=== PATIENT | male | born 1960 | race Caucasian/White ===

== ENCOUNTER 2018-07-07 10:00 | Emergency (ER) | payer BC ==
--- NOTE | 2018-07-07 10:11 | EDM.PDOC ---
ED HPI GENERAL MEDICAL PROBLEM - General Chief Complaint: Neck Problem Stated Complaint: NECK PAIN Time Seen by Provider: 07/07/18 10:10 Source of Information: Reports: Patient History Limitations: Reports: No Limitations - History of Present Illness INITIAL COMMENTS - FREE TEXT/NARRATIVE: HISTORY AND PHYSICAL: History of present illness: Patient is a 58-year-old male who presents to the emergency room today with complaints of neck pain that radiates intermittently to both arms. He states approximately 1 week ago off of a ladder onto the ground, approximately 3 feet. He states he did not loose consciousness at this time. He fell a second time 4 days ago from standing height - he tripped and fell against a cabinet, hitting his face and "I think I blacked out". Since that time he has had increased neck pain, which radiates intermittently into the right or left shoulder (it is either or, not both at the same time). This resolves with in seconds to a minute , usually after stopping the offending activity (hold the phone, or reaching up , etc...) He states he is here today as he does have to return to work tomorrow from the long weekend, and would like his pain better managed and "make sure everything is okay". Denies any fever, chills, syncope or near syncope, change in vision. He denies any chest pain, cough or shortness of breath. He denies any neurological deficits or motor function weakness. Denies any GI or symptoms. Review of systems: As per history of present illness and below otherwise all systems reviewed and negative. Past medical history: As per history of present illness and as reviewed below otherwise noncontributory. Surgical history: As per history of present illness and as reviewed below otherwise noncontributory. Social history: No reported history of drug or alcohol abuse. Family history: As per history of present illness and as reviewed below otherwise noncontributory. Physical exam: General: Well-developed and well-nourished 58-year-old male. Alert and oriented. Nontoxic appearing and in no acute distress. HEENT: Atraumatic, nontender with palpation, normocephalic, pupils equal and reactive bilaterally, negative for conjunctival pallor or scleral icterus, mucous membranes moist, throat clear, neck supple, nontender, trachea midline. No drooling or trismus noted. No meningeal signs Lungs: Clear to auscultation, breath sounds equal bilaterally, chest nontender. Heart: S1S2, regular rate and rhythm without overt murmur Abdomen: Soft, nondistended, nontender. Negative for masses or hepatosplenomegaly. Negative for costovertebral tenderness. Pelvis: Stable nontender. Genitourinary: Deferred. Rectal: Deferred. C-spine/Back: No pinpoint vertebral tenderness upon palpation. No crepitus, step -offs or obvious deformities. Patient is fully ambulatory without difficulty or deficits. He is able to walk on his heels and toes without difficulty. He denies any urinary or fecal incontinence. Skin: Small circular healed bruise noted to the right cheekbone approximately 9 mm. Intact, warm, dry. No lesions or rashes noted. Extremities: Atraumatic, moves all extremities per self without difficulty or deficits, has full range of motion to all extremities. He is negative for cords or calf pain. Does note some intermittent tingling to bilateral extremities, does not occur both at the same time approximately 30-60 seconds Neurovascular unremarkable. Neuro: Awake, alert, oriented. Cranial nerves II through XII unremarkable. Cerebellum unremarkable. Motor and sensory unremarkable throughout. Exam nonfocal. Notes: CT of the head and neck show no acute fractures or subluxation or bleeding. I did discuss with the patient if he continues to have pain and discomfort he may need to have an MRI through his primary care provider. At this time I am going to treat as a musculoskeletal strain as he does have pain to the trapezius muscle when palpating. Flexeril and Voltaren were prescribed, education given. Patient voices understanding and is agreeable to plan of care. Denies any further questions or concerns at this time. Diagnostics: Head and C-spine CT Therapeutics: Toradol Prescription: Flexeril (#15) and Voltaren (#20) PRN Impression: Neck Pain Neck Muscular Strain Plan: 1. Rest, ice and elevate the painful areas as able. 2. Tylenol as needed for pain management. Use the Voltaren and Flexeril as directed. Do not drive or operate machinery while taking the Flexeril as this will cause drowsiness. Please take the Voltaren with food, and do not take any additional NSAID such as ibuprofen or Aleve with this medication. 3. Please follow-up with your primary caregiver in the next 1-2 days. Return to the ED as needed and as discussed. Definitive disposition and diagnosis as appropriate pending reevaluation and review of above. Duration: Day(s): Location: Reports: Neck Neck Pain Score (Numeric/FACES): 7 - Related Data Allergies Allergy/AdvReac Type Severity Reaction Status Date / Time Penicillins Allergy Cannot Verified 09/10/14 17:35 Remember Home Meds: Home Meds Fexofenadine/Pseudoephedrine [Luba-D 12 Hour Tablet] 1 tab PO DAILY 09/10/14 [History] Montelukast [Singulair] 1 tab PO DAILY 09/10/14 [History] Simvastatin [Zocor] 1 tab PO DAILY 09/10/14 [History] ED ROS GENERAL - Review of Systems Review Of Systems: ROS reveals no pertinent complaints other than HPI. ED EXAM, UPPER BACK/NECK PAIN - Physical Exam Exam: See Below (See dictation) Course - Vital Signs Last Recorded V/S: Last Vital Signs Temp 98.1 F 07/07/18 10:12 Pulse 65 07/07/18 10:12 Resp 16 07/07/18 10:12 BP 181/93 H 07/07/18 10:12 Pulse Ox 97 07/07/18 10:12 - Orders/Labs/Meds Orders: Active Orders 24 hr Category Date Time Status Cervical Spine wo Cont [CT] Stat Exams 07/07/18 10:18 Ordered Head wo Cont [CT] Stat Exams 07/07/18 10:26 Ordered Meds: Medications Discontinued Medications Generic Name Dose Route Start Last Admin Trade Name Eris PRN Reason Stop Dose Admin Ketorolac Tromethamine 60 mg 07/07/18 10:26 Toradol IM 07/07/18 10:27 ONETIME ONE Departure - Departure Time of Disposition: 11:14 Disposition: Home, Self-Care 01 Clinical Impression: Neck pain Neck muscle strain Qualifiers: Encounter type: initial encounter Qualified Code(s): S16.1XXA - Strain of muscle, fascia and tendon at neck level, initial encounter - Discharge Information Instructions: Muscle Strain Referrals: PCP,None [Primary Care Provider] - Forms: ED Department Discharge Additional Instructions: The following information is given to patients seen in the emergency department who are being discharged to home. This information is to outline your options for follow-up care. We provide all patients seen in our emergency department with a follow-up referral. The need for follow-up, as well as the timing and circumstances, are variable depending upon the specifics of your emergency department visit. If you don't have a primary care physician on staff, we will provide you with a referral. We always advise you to contact your personal physician following an emergency department visit to inform them of the circumstance of the visit and for follow-up with them and/or the need for any referrals to a consulting specialist. The emergency department will also refer you to a specialist when appropriate. This referral assures that you have the opportunity for follow-up care with a specialist. All of these measure are taken in an effort to provide you with optimal care, which includes your follow-up. Under all circumstances we always encourage you to contact your private physician who remains a resource for coordinating your care. When calling for follow-up care, please make the office aware that this follow-up is from your recent emergency room visit. If for any reason you are refused follow-up, please contact the [facility] Emergency Department at and asked to speak to the emergency department charge nurse. [facility] [address] [place] [address] 1. Rest, ice and elevate the painful areas as able. 2. Tylenol as needed for pain management. Use the Voltaren and Flexeril as directed. Do not drive or operate machinery while taking the Flexeril as this will cause drowsiness. Please take the Voltaren with food, and do not take any additional NSAID such as ibuprofen or Aleve with this medication. 3. Please follow-up with your primary caregiver in the next 1-2 days. Return to the ED as needed and as discussed. - My Orders Last 24 Hours: My Active Orders 07/07/18 10:18 Cervical Spine wo Cont [CT] Stat 07/07/18 10:26 Head wo Cont [CT] Stat - Assessment/Plan Last 24 Hours: My Active Orders 07/07/18 10:18 Cervical Spine wo Cont [CT] Stat 07/07/18 10:26 Head wo Cont [CT] Stat
[2018-07-07 10:17] VITALS: BP 181/93
[2018-07-07] MEDS ORDERED: Ketorolac 60 MG/2 ML SDV IM ONE (10:26)
[2018-07-07] MEDS ORDERED: Cyclobenzaprine 10 MG Tab PO ONE (11:22)
--- NOTE | 2018-07-08 09:08 | CT ---
EXAM DATE: 07/07/18 PATIENT'S AGE: 58 Patient: TIMMY NAZARIO Facility: [place], [place] Site . Site : 1960 Study: CT Head WO CONT [id number]/3/2018 10:42:36 AM Ordering Physician: Doctor Khan Final Report: Indication: Pain Technique: Noncontrast head CT scan Comparison: No comparison studies are available. Findings: Axial noncontrast images through the brain parenchyma demonstrates no acute intracranial hemorrhage or mass. No midline shift. No abnormal extra-axial air fluid collections. Polypoid soft tissue density left maxillary sinus may represent a mucous retention cyst or polyp. Mucosal thickening in the maxillary sinuses. Partial opacification ethmoid air cells. Visualized paranasal sinuses, mastoid air cells skull and scalp otherwise appears unremarkable. Left vertex scalp soft tissue swelling. Impression: 1. No acute intracranial hemorrhage or mass. 2. Maxillary and ethmoid sinus disease. Please note that all CT scans at this facility use dose modulation, iterative reconstruction, and/or weight-based dosing when appropriate to reduce radiation dose to as low as reasonably achievable. Dictated by Ele Cuenca MD @ Jul 07 2018 11:04AM (Electronic Signature) Report Signed by Proxy. BUBBA
--- NOTE | 2018-07-08 09:09 | CT ---
EXAM DATE: 07/07/18 PATIENT'S AGE: 58 Patient: TIMMY NAZARIO Facility: [place], [place] Site . Site : 1960 Study: CT Spine Cervical WO CONT [id number]/3/2018 10:43:25 AM Ordering Physician: Doctor Khan Final Report: Indication: Pain patient fell and hit face and neck Saturday Technique: Cervical spine CT scan. Coronal and sagittal reformatted images obtained. Comparison: No comparison studies are available. Findings: Reversal of the normal cervical lordosis. Diffuse mild to moderate degenerative change of the cervical spine with anterior bridging osteophytes. Lateral masses of C1 align normally with the C2 vertebral body. No acute fractures seen. Prevertebral soft tissues are within normal limits. Small amount fluid in the mastoid air cells. Impression: No acute cervical spine fracture or subluxation. Please note that all CT scans at this facility use dose modulation, iterative reconstruction, and/or weight-based dosing when appropriate to reduce radiation dose to as low as reasonably achievable. Dictated by Ele Cuenca MD @ Jul 07 2018 11:08AM (Electronic Signature) Report Signed by Proxy. BUBBA
== END 2018-07-07 11:45 | disposition home or self-care (01) ==
LOC: MW.ED 10:00
DX: S16.1XXA Strain of muscle, fascia and tendon at neck level, initial encounter (principal); Z88.0 Allergy status to penicillin; Z79.899 Other long term (current) drug therapy
CPT/HCPCS: 70450; 72125; 96372; 99283; A9270; J1885

== ENCOUNTER 2018-11-24 13:36 | Observation (INO) | payer BC ==
[2018-11-24] MEDS ORDERED: Nitroglycerin 0.4 MG Tab.SL SL PRN (14:03)
[2018-11-24] MEDS ORDERED: Aspirin 81 MG Tab.Chew PO ONE (14:03)
--- NOTE | 2018-11-24 14:15 | EDM.PDOC ---
ED HPI GENERAL MEDICAL PROBLEM - General Chief Complaint: Chest Pain Stated Complaint: CHEST PAIN AND TIGHTNESS Time Seen by Provider: 11/24/18 14:05 Source of Information: Reports: Patient History Limitations: Reports: No Limitations - History of Present Illness INITIAL COMMENTS - FREE TEXT/NARRATIVE: HISTORY AND PHYSICAL: History of present illness: Patient is a 58-year-old male who presents to the emergency room with complaints of chest pain, near syncopal and diaphoresis. Over the past several weeks he has been having intermittent chest pain. He saw his primary care provider who has been evaluating him. This morning he saw our outcomes manager and had a physical stress test done. He states during that time he felt near syncopal, midsternal chest pain and generalized malaise. Per patient, he was told to call his primary care provider to get a prescription for nitroglycerin sublingual. He currently has midsternal chest pain, upon arrival it was a 5 currently rates it at a 2 out of 10. Review of systems: As per history of present illness and below otherwise all systems reviewed and negative. Past medical history: As per history of present illness and as reviewed below otherwise noncontributory. Surgical history: As per history of present illness and as reviewed below otherwise noncontributory. Social history: See social history for further information Family history: As per history of present illness and as reviewed below otherwise noncontributory. Physical exam: General: Well-developed and well-nourished 58-year-old male. Alert and oriented. Nontoxic appearing and in no acute distress. HEENT: Atraumatic, normocephalic, pupils equal and reactive bilaterally, negative for conjunctival pallor or scleral icterus, mucous membranes moist, TMs normal bilaterally, throat clear, neck supple, nontender, trachea midline. No drooling or trismus noted. No meningeal signs. No hot potato voice noted. Lungs: Clear to auscultation, breath sounds equal bilaterally, chest nontender. Heart: S1S2, regular rate and rhythm without overt murmur Abdomen: Soft, nondistended, nontender. Negative for masses or hepatosplenomegaly. Negative for costovertebral tenderness. Pelvis: Stable nontender. Genitourinary: Deferred. Rectal: Deferred. Skin: Intact, warm, dry. No lesions or rashes noted. Extremities: Atraumatic, negative for cords or calf pain. Neurovascular unremarkable. Neuro: Awake, alert, oriented. Cranial nerves II through XII unremarkable. Cerebellum unremarkable. Motor and sensory unremarkable throughout. Exam nonfocal. Notes: Patient had relief of chest pain with one tablet of nitroglycerin. Continues to complain of sensation of near syncope and some neck discomfort. Lab work is unremarkable. Chest x-ray shows no acute findings. Offered patient admission he is agreeable. Dr. Garcia was consulted on this patient and agreeable to keep this patient for observation with telemetry. Diagnostics: CBC, CMP, troponin, EKG, chest x-ray Therapeutics: IV fluid, nitroglycerin, aspirin Impression: Chest pain rule out Near syncope Plan: Observation admission to [facility] with telemetry Definitive disposition and diagnosis as appropriate pending reevaluation and review of above. left chest Pain Score (Numeric/FACES): 4 - Related Data Allergies Allergy/AdvReac Type Severity Reaction Status Date / Time Penicillins Allergy Cannot Verified 11/24/18 13:43 Remember Home Meds: Home Meds Fexofenadine/Pseudoephedrine [Luba-D 12 Hour Tablet] 1 tab PO DAILY 09/10/14 [History] Montelukast [Singulair] 1 tab PO DAILY 09/10/14 [History] Simvastatin [Zocor] 1 tab PO DAILY 09/10/14 [History] Albuterol [Ventolin HFA] 11/24/18 [History] Esomeprazole [NexIUM] 40 mg PO DAILY 11/24/18 [History] Past Medical History HEENT History: Reports: Allergic Rhinitis Cardiovascular History: Reports: High Cholesterol Respiratory History: Reports: Asthma Gastrointestinal History: Reports: GERD - Infectious Disease History Infectious Disease History: Reports: Chicken Pox, Mumps - Past Surgical History Musculoskeletal Surgical History: Reports: Knee Replacement Social & Family History - Family History Family Medical History: Noncontributory - Tobacco Use Smoking Status *Q: Never Smoker - Caffeine Use Caffeine Use: Reports: Coffee, Soda - Recreational Drug Use Recreational Drug Use: No ED ROS GENERAL - Review of Systems Review Of Systems: ROS reveals no pertinent complaints other than HPI. ED EXAM, GENERAL - Physical Exam Exam: See Below (See dictation) Course - Vital Signs Last Recorded V/S: Last Vital Signs Temp 97.7 F 11/24/18 13:40 Pulse 57 L 11/24/18 13:40 Resp 18 11/24/18 13:40 BP 117/63 11/24/18 14:16 Pulse Ox 98 11/24/18 13:40 - Orders/Labs/Meds Orders: Active Orders 24 hr Category Date Time Status EKG Documentation Completion [RC] STAT Care 11/24/18 14:03 Active Nitroglycerin [Nitrostat] Med 11/24/18 14:03 Active 0.4 mg SL Q5M PRN Sodium Chloride 0.9% [Normal Saline] 1,000 ml Med 11/24/18 14:16 Active IV STAT Medication Orders Sodium Chloride (Normal Saline) 1,000 mls @ 999 mls/hr IV STAT ONE Stop: 11/24/18 15:16 Last Admin: 11/24/18 14:16 Dose: 999 mls/hr Nitroglycerin (Nitrostat) 0.4 mg SL Q5M PRN PRN Reason: Chest Pain Last Admin: 11/24/18 14:16 Dose: 0.4 mg Labs: Laboratory Tests 11/24/18 11/24/18 Range/Units 13:54 13:54 WBC 7.15 (4.0-11.0) K/uL RBC 4.82 (4.50-5.90) M/uL Hgb 16.1 (13.0-17.0) g/dL Hct 46.4 (38.0-50.0) % MCV 96.3 (80.0-98.0) fL MCH 33.4 H (27.0-32.0) pg MCHC 34.7 (31.0-37.0) g/dL RDW Std Deviation 45.6 (28.0-62.0) fl RDW Coeff of Lila 13 (11.0-15.0) % Plt Count 184 (150-400) K/uL MPV 9.60 (7.40-12.00) fL Neut % (Auto) 53.6 (48.0-80.0) % Lymph % (Auto) 33.0 (16.0-40.0) % Terry % (Auto) 9.8 (0.0-15.0) % Eos % (Auto) 3.2 (0.0-7.0) % Baso % (Auto) 0.4 (0.0-1.5) % Neut # (Auto) 3.8 (1.4-5.7) K/uL Lymph # (Auto) 2.4 (0.6-2.4) K/uL Terry # (Auto) 0.7 (0.0-0.8) K/uL Eos # (Auto) 0.2 (0.0-0.7) K/uL Baso # (Auto) 0.0 (0.0-0.1) K/uL Nucleated RBC % 0.0 /100WBC Nucleated RBCs # 0 K/uL Sodium 137 (136-148) mmol/L Potassium 4.0 (3.5-5.1) mmol/L Chloride 104 (98-107) mmol/L Carbon Dioxide 25.5 (21.0-32.0) mmol/L BUN 12 (7.0-18.0) mg/dL Creatinine 1.1 (0.8-1.3) mg/dL Est Cr Clr Drug Dosing 71.68 mL/min Estimated GFR (MDRD) > 60.0 ml/min Glucose 121 H (74-106) mg/dL Calcium 9.5 (8.5-10.1) mg/dL Total Bilirubin 0.6 (0.2-1.0) mg/dL AST 25 (15-37) IU/L ALT 20 (14-63) IU/L Alkaline Phosphatase 76 (46-116) U/L Troponin I 0.050 (0.000-0.056) ng/mL Total Protein 7.2 (6.4-8.2) g/dL Albumin 3.4 (3.4-5.0) g/dL Globulin 3.8 (2.6-4.0) g/dL Albumin/Globulin Ratio 0.9 (0.9-1.6) Meds: Medications Generic Name Dose Route Start Last Admin Trade Name Freq PRN Reason Stop Dose Admin Sodium Chloride 1,000 mls @ 999 mls/hr 11/24/18 14:16 11/24/18 14:16 Normal Saline IV 11/24/18 15:16 999 mls/hr STAT ONE Administration Nitroglycerin 0.4 mg 11/24/18 14:03 11/24/18 14:16 Nitrostat SL 0.4 mg Q5M PRN Administration Chest Pain Discontinued Medications Generic Name Dose Route Start Last Admin Trade Name Freq PRN Reason Stop Dose Admin Aspirin 324 mg 11/24/18 14:03 11/24/18 14:18 Aspirin PO 11/24/18 14:04 324 mg ONETIME ONE Administration Departure - Departure Time of Disposition: 14:51 Disposition: Refer to Observation Clinical Impression: Chest pain, rule out acute myocardial infarction, Near syncope Referrals: PCP,Unknown [Primary Care Provider] - Forms: ED Department Discharge - My Orders Last 24 Hours: My Active Orders 11/24/18 14:03 EKG Documentation Completion [RC] STAT Nitroglycerin [Nitrostat] 0.4 mg SL Q5M PRN 11/24/18 14:16 Sodium Chloride 0.9% [Normal Saline] 1,000 ml IV STAT - Assessment/Plan Last 24 Hours: My Active Orders 11/24/18 14:03 EKG Documentation Completion [RC] STAT Nitroglycerin [Nitrostat] 0.4 mg SL Q5M PRN 11/24/18 14:16 Sodium Chloride 0.9% [Normal Saline] 1,000 ml IV STAT
[2018-11-24] MEDS ORDERED: Sodium Chloride 0.9% 1,000 ML IV ONE (14:16)
[2018-11-24 14:29] LABS: CHLORIDE,CL 104 mmol/L (98-107); SODIUM,NA 137 mmol/L (136-148)
--- NOTE | 2018-11-24 14:42 | CR ---
EXAMINATION: Portable chest radiograph. HISTORY: Chest pain. FINDINGS: The trachea is midline. The cardiomediastinal silhouette is within normal limits. No pulmonary infiltrates, effusions or pneumothorax. Osseous structures appear unremarkable. IMPRESSION: No acute cardiopulmonary process.
[2018-11-24] MEDS ORDERED: Pantoprazole 40 MG Vial IVPUSH ONE (15:35)
--- NOTE | 2018-11-24 15:41 | PCM.HP ---
H&P History of Present Illness - General Date of Service: 11/24/18 Admit Problem/Dx: Admission Diagnosis/Problem Admission Diagnosis/Problem Chest pain, rule out acute myocardial infarction Source of Information: Patient History Limitations: Reports: No Limitations - History of Present Illness Initial Comments - Free Text/Narative: This 58 year old male with pmh of asthma, obesity, hyperlipidemia presented to the ED today with chest pain, neck pain and lightheadedness. He reports he had a stress test this morning with Dr Dumont. He was on the treadmill nearing the end and became very lightheaded with neck pain. He told them to stop , which they did. He was near normal before going home but at home he started having a worse headache with neck pain, lightheadedness and chest pain. The chest pain was L sided, anterior, burning in nature, no radiation of this pain. Mild shortness of breath and some diaphoresis. He reports in September at [employer] he was eating chili and passed out with family around him and then reported this same neck pain, but declined to be evaluated at that time. He reports since that time in September he has never felt the same and has felt very fatigued and feels when he over exerts himself he gets this neck pain and has near syncope at times. He denies abdominal pain, dysuria or black or bloody BMs. No fevers, chills or URI symptoms at home. Reports congestion, which is normal due to allergies and takes Luba daily for this. He chews tobacco, 1 tin every 2 days, occassional alcohol use and no recreational drug use. He has significant family family history of CAD on his paternal side and his brother had carotid endarterectomy. In the ED labwork WNL. BP on arrival elevated in 180s/90s. Given 1 nitro and pain was relieved. Also given ASA 324 mg. EKG SR with no acute ST changes. CXR negative. Dr Dumont did talk with patient in ED with me, feels admission for observation and ECHO is recommended. PCP, Dr Sutton. left chest Pain Score (Numeric/FACES): 4 - Related Data Allergies/Adverse Reactions: Allergies Allergy/AdvReac Type Severity Reaction Status Date / Time Penicillins Allergy Cannot Verified 11/24/18 13:43 Remember Home Medications: Home Meds Fexofenadine/Pseudoephedrine [Luba-D 12 Hour Tablet] 1 tab PO DAILY 09/10/14 [History] Montelukast [Singulair] 1 tab PO DAILY 09/10/14 [History] Simvastatin [Zocor] 1 tab PO DAILY 09/10/14 [History] Albuterol [Ventolin HFA] 11/24/18 [History] Esomeprazole [NexIUM] 40 mg PO DAILY 11/24/18 [History] Past Medical History HEENT History: Reports: Allergic Rhinitis Cardiovascular History: Reports: High Cholesterol. Denies: Afib, Blood Clots/ VTE/DVT, Hypertension, AL Respiratory History: Reports: Asthma, SOB (with exertion) Gastrointestinal History: Reports: GERD Musculoskeletal History: Reports: None Neurological History: Denies: CVA, Migraines, TIA Psychiatric History: Reports: None - Infectious Disease History Infectious Disease History: Reports: Chicken Pox, Mumps - Past Surgical History GI Surgical History: Reports: Appendectomy Musculoskeletal Surgical History: Reports: Knee Replacement (Right) Social & Family History - Family History Family Medical History: Noncontributory - Tobacco Use Smoking Status *Q: Current Every Day Smoker Tobacco Use Within Last Twelve Months: Smokeless Tobacco Packs/Tins Daily: 0.5 - Caffeine Use Caffeine Use: Reports: Coffee, Soda - Alcohol Use Alcohol Use History: Yes Days Per Week of Alcohol Use: 4 Number of Drinks Per Day: 2 Total Drinks Per Week: 8 Alcohol Use Frequency: Weekly - Recreational Drug Use Recreational Drug Use: No - Living Situation & Occupation Living situation: Reports: Occupation: Employed (works in the [employer] H&P Review of Systems - Review of Systems: Review Of Systems: See Below General: Reports: Fatigue. Denies: Fever, Chills, Weakness HEENT: Reports: Vertigo Pulmonary: Reports: Shortness of Breath (no longer having this, but earlier). Denies: Wheezing, Cough, Sputum Cardiovascular: Reports: Chest Pain (now gone.), Dyspnea on Exertion, Lightheadedness, Syncope (and near syncope) Gastrointestinal: Reports: No Symptoms. Denies: Abdominal Pain, Black Stool, Nausea, Vomiting Genitourinary: Reports: No Symptoms. Denies: Dysuria, Frequency, Burning Musculoskeletal: Reports: Neck Pain Skin: Reports: No Symptoms Psychiatric: Reports: No Symptoms Neurological: Reports: No Symptoms Hematologic/Lymphatic: Reports: No Symptoms Immunologic: Reports: No Symptoms Exam - Exam Exam: See Below - Vital Signs Vital Signs: Last Vital Signs Temp 97.7 F 11/24/18 13:40 Pulse 57 L 11/24/18 13:40 Resp 18 11/24/18 13:40 BP 117/63 11/24/18 14:16 Pulse Ox 98 11/24/18 13:40 Weight: 120.202 kg - Exam General: Alert, Oriented, Cooperative HEENT: Conjunctiva Clear, Mucosa Moist & [place], Posterior Pharynx Clear Neck: +2 Carotid Pulse wo Bruit, Full Range of Motion (no nuchal rigidity), Other (tenderness to trapezius muscle extending up to occiput. ) Lungs: Clear to Auscultation, Normal Respiratory Effort. No: Wheezing Cardiovascular: Regular Rate, Regular Rhythm GI/Abdominal Exam: Normal Bowel Sounds, Soft, Non-Tender Back Exam: Normal Inspection, Full Range of Motion Extremities: Normal Inspection, Normal Range of Motion, Non-Tender, No Pedal Edema Neuro Extensive - Mental Status: Alert, Oriented x3, Normal Mood/Affect Neuro Extensive - Motor, Sensory, Reflexes: CN II-XII Intact Psychiatric: Alert, Normal Affect, Normal Mood - Patient Data Lab Results Last 24 hrs: Laboratory Results - last 24 hr 11/24/18 11/24/18 Range/Units 13:54 13:54 WBC 7.15 (4.0-11.0) K/uL RBC 4.82 (4.50-5.90) M/uL Hgb 16.1 (13.0-17.0) g/dL Hct 46.4 (38.0-50.0) % MCV 96.3 (80.0-98.0) fL MCH 33.4 H (27.0-32.0) pg MCHC 34.7 (31.0-37.0) g/dL RDW Std Deviation 45.6 (28.0-62.0) fl RDW Coeff of Lila 13 (11.0-15.0) % Plt Count 184 (150-400) K/uL MPV 9.60 (7.40-12.00) fL Neut % (Auto) 53.6 (48.0-80.0) % Lymph % (Auto) 33.0 (16.0-40.0) % [place] % (Auto) 9.8 (0.0-15.0) % Eos % (Auto) 3.2 (0.0-7.0) % Baso % (Auto) 0.4 (0.0-1.5) % Neut # (Auto) 3.8 (1.4-5.7) K/uL Lymph # (Auto) 2.4 (0.6-2.4) K/uL [place] # (Auto) 0.7 (0.0-0.8) K/uL Eos # (Auto) 0.2 (0.0-0.7) K/uL Baso # (Auto) 0.0 (0.0-0.1) K/uL Nucleated RBC % 0.0 /100WBC Nucleated RBCs # 0 K/uL Sodium 137 (136-148) mmol/L Potassium 4.0 (3.5-5.1) mmol/L Chloride 104 (98-107) mmol/L Carbon Dioxide 25.5 (21.0-32.0) mmol/L BUN 12 (7.0-18.0) mg/dL Creatinine 1.1 (0.8-1.3) mg/dL Est Cr Clr Drug Dosing 71.68 mL/min Estimated GFR (MDRD) > 60.0 ml/min Glucose 121 H (74-106) mg/dL Calcium 9.5 (8.5-10.1) mg/dL Total Bilirubin 0.6 (0.2-1.0) mg/dL AST 25 (15-37) IU/L ALT 20 (14-63) IU/L Alkaline Phosphatase 76 (46-116) U/L Troponin I 0.050 (0.000-0.056) ng/mL Total Protein 7.2 (6.4-8.2) g/dL Albumin 3.4 (3.4-5.0) g/dL Globulin 3.8 (2.6-4.0) g/dL Albumin/Globulin Ratio 0.9 (0.9-1.6) Result Diagrams: 11/24/18 13:54 11/24/18 13:54 EKG INTERPRETATION EKG Date: 11/24/18 Rhythm: NSR Rate (Beats/Min): 60 [place]: Normal QRS: Normal ST-T: Normal QT: Normal *Q Meaningful Use (ADM) - VTE Risk Assess *Q Each Risk Factor Represents 1 Point: Age 41 - 59 years, Obesity ( BMI > 25 kg/m2 ) Total Score 1 Point Risk Factors: 2 Each Risk Factor Represents 2 Points: None Total Score 2 Point Risk Factors: 0 Each Risk Factor Represents 3 Points: None Total Score 3 Point Risk Factors: 0 Each Risk Factor Represents 5 Points: None Total Score 5 Point Risk Factors: 0 Venous Thromboembolism Risk Factor Score *Q: 2 - Problem List (1) Chest pain, rule out acute myocardial infarction SNOMED Code(s): 95858275 ICD Code: R07.9 - CHEST PAIN, UNSPECIFIED Status: Acute Current Visit: Yes (2) Near syncope SNOMED Code(s): 125610772 ICD Code: R55 - SYNCOPE AND COLLAPSE Status: Acute Current Visit: Yes (3) Neck pain SNOMED Code(s): 30470274 ICD Code: M54.2 - CERVICALGIA Status: Acute Current Visit: No (4) Hyperlipidemia SNOMED Code(s): 68202315 ICD Code: E78.5 - HYPERLIPIDEMIA, UNSPECIFIED Status: Chronic Current Visit: Yes (5) Asthma SNOMED Code(s): 922694917 ICD Code: J45.909 - UNSPECIFIED ASTHMA, UNCOMPLICATED Status: Chronic Current Visit: Yes Qualifiers: Asthma severity: mild Asthma persistence: intermittent Asthma complication type: uncomplicated Qualified Code(s): J45.20 - Mild intermittent asthma, uncomplicated Problem List Initiated/Reviewed/Updated: Yes Orders Last 24hrs: Active Orders 24 hr Category Date Time Status Admission Status [Patient Status] [ADT] Stat ADT 11/24/18 14:52 Active Cardiac Monitoring [RC] . DIRECTED Care 11/24/18 14:52 Active EKG Documentation Completion [RC] STAT Care 11/24/18 14:03 Active CV Carotid Duplex Comp [US] Routine Exams 11/24/18 15:34 Ordered Echo 2D wo Cont [US] Routine Exams 11/24/18 15:34 Ordered GLYCOSYLATED HEMOGLOBIN,HGBA1C [CHEM] Stat Lab 11/24/18 15:35 Ordered Nitroglycerin [Nitrostat] Med 11/24/18 14:03 Active 0.4 mg SL Q5M PRN Pantoprazole [ProTONIX IV] Med 11/24/18 15:35 Once 40 mg IVPUSH NOW ONE Resuscitation Status Routine Resus Stat 11/24/18 15:35 Ordered Medication Orders Nitroglycerin (Nitrostat) 0.4 mg SL Q5M PRN PRN Reason: Chest Pain Last Admin: 11/24/18 14:16 Dose: 0.4 mg Assessment/Plan Comment:: This 58 year old male admitted with atypical chest pain and near syncope 1. Chest pain: Will monitor on telemetry, trend troponins. Obtain A1c and lipid panel since it has been nearly a year since checked. Consult Dr Geller. Obtain ECHO. 2. Near syncope: Orthostatics, obtain ECHO and obtain Carotid US as well. 3. Asthma: Stable. No wheezing. Will monitor. 4. Hyperlipidemia: Will check lipid panel, continue ASA and statin. VTE prophylaxis: Lovenox. Dispo: 1 day.
[2018-11-24 16:05] LABS: HEMOGLOBIN A1C 5.6 % (4.5-6.2)
[2018-11-24] MEDS ORDERED: Acetaminophen 325 MG Tab PO PRN (16:19)
[2018-11-24] MEDS ORDERED: Ondansetron 4 MG/2 ML SDV IVPUSH PRN (16:19)
[2018-11-24] MEDS ORDERED: Albuterol 0.083% 2.5 MG/3 ML Neb Soln NEB PRN (16:19)
--- NOTE | 2018-11-24 18:12 | CONS ---
DATE OF CONSULTATION: DATE OF : 1960 PRIMARY CARE PHYSICIAN: Unknown PCP REASON FOR CONSULTATION: Chest pain after the stress test. HISTORY OF PRESENT ILLNESS: This is a 58-year-old cedrick with history of high blood pressure and high cholesterol. He came into the emergency room because of the incidence of neck pain and the chest pain. He had the exercise nuclear perfusion scan this morning, but right after exercise testing, he started feeling mild shortness of breath with dizziness afterward with the neck pain, but no chest pain right after and then he went home. He was resting and then when he got out, he started having the chest tightness on the left side and lasted for about half an hour to an hour with the neck pain. He is still feeling not very well, and then he decided to come to the emergency room. He got the nitroglycerin pill sublingual. He feels that it helped with the chest pain, and the neck pain came down a little bit as well. The troponin was negative x1. EKG showed ST abnormality on lead III and aVL, and then the stress test still pending and then he was admitted to the hospital. REVIEW OF SYSTEMS: Otherwise, the reason for the stress test schedule because of the incidence of a chest tightness as well as the neck pain on exertion when he walk upstairs as well as on the deer hunting trip that was the reason he had the stress test schedule. PAST MEDICAL HISTORY: Including hypertension, hyperlipidemia, nonsmoker, and nondiabetic. MEDICATIONS: Includin. Simvastatin 20 mg once a day. 2. Lisinopril 20 mg once a day. 3. Has asthma with Ventolin inhalers. SOCIAL HISTORY: He denies smoking, occasional drinking, and no drug use. FAMILY HISTORY: His father has a history of heart failure. PHYSICAL EXAMINATION: VITAL SIGNS: The initial blood pressure was elevated 182/96, heart rate of 47 to 56, O2 saturation of 98 on room air, respiration is 17, and temperature 36.8. HEENT: Not pale. No jaundice. No JVD. HEART: Normal S1 and S2. No murmur. LUNGS: Clear. ABDOMEN: Soft and nontender. Bowel sounds are present. No hepatosplenomegaly. EXTREMITIES: Legs, no edema. INVESTIGATION: EKG on November 24, 2018, shows sinus rhythm, heart rate of 57, NM interval 155, QRS duration 93, QTc 390, ST abnormality in III and aVF, and EKG back in September 2018, sinus rhythm, no apparent ST abnormalities. Exercise nuclear perfusion scan still pending. CBC showed WBC 7, hematocrit of 46, and hemoglobin of 184. Sodium 137, potassium 4, chloride 104, bicarb 25, BUN 12, creatinine 1.1. A1c 5.6. Troponin was 0.050. ASSESSMENT AND PLAN: This is a 58-year-old male with history of hypertension and hyperlipidemia, presented to hospital with neck pain as well as a chest pain after the exercise testing. His chest pain is improved by nitroglycerin as well as the neck pain, but he still had a neck pain when I am talking to him. EKG did show some ST abnormality in lead III and aVF. He would need to be observed in the hospital, and cardiac enzymes need to be cycled, and repeat EKG needs to be performed in the morning, and echocardiogram was ordered as well as carotid ultrasound and the resting part of the nuclear perfusion scan. ROBERT / ANDREA /[id number]
[2018-11-24] MEDS ORDERED: Albuterol 6.7 GM Inhaler INH PRN (18:43)
[2018-11-24] MEDS ORDERED: Fluticasone Propionate 110 MCG/Puff 12 GM Inhaler INH SCH (18:45)
[2018-11-24] MEDS: FLUTICASONE 44 MCG INH SCH (20:46)
[2018-11-24] MEDS ORDERED: Simvastatin 10 MG Tab PO SCH (21:00)
[2018-11-25] MEDS ORDERED: Omeprazole 20 MG Cap.CR PO SCH (07:30)
[2018-11-25] MEDS ORDERED: Aspirin 81 MG Tab.Chew PO SCH (09:00)
[2018-11-25] MEDS: FLUTICASONE 44 MCG INH SCH (09:46)
--- NOTE | 2018-11-25 13:24 | US ---
EXAMINATION: Carotid US with tatum scale and duplex imaging. HISTORY: Neck pain FINDINGS: Ultrasound examination of bilateral cervical carotid arteries was performed using tatum scale and duplex imaging. Mild scattered atheromatous changes noted within the carotid arteries bilaterally. Antegrade flow noted within the vertebrals. These are the peak velocities in cm per second (systole), right and left respectively, by a comma: CCA (common carotid artery) - 84, 84 ICA (internal carotid artery) - 76, 99 ECA (External carotid artery) - 97, 113 ICA/CCA systolic ratio Right - 1.1 Left - 1.4 IMPRESSION: Mild scattered atheromatous changes without significant stenosis or elevated velocities.
[2018-11-25 17:36] VITALS: BP 113/92
--- NOTE | 2018-11-25 18:06 | PCM.SN ---
- Free Text/Narrative Note: 58M HTN HLP with chest pain VELOZ persistent neck pain came in to the hospital for being dizzy SOB chest pain/neck pain after having exercise stress test done. chest pain seemed to be gone after NTG SL. Trop was negative x3 VS stable, he had the episodes of asymptomatic bradycardia of HR 40-50, and it improved to 60 with walking. Denied dizziness. Ex nuc perfusion scan showed mild decrease in radiouptake in basal to distal inferior wall along with mild to mod hypokinesis TID 1.12 post stress/resting LVEF 53%/51% Echo pre LVEH 55-60% no significant valve problems. Resting ECG showed ST abnormalities in III aVF He worked in the [employer], which is physical job, I told he should be off duty till he had the angiogram done. He will be discharged with ASA, crestor 20 daily, NTG SL, we will hold off on the BB for now due to the concern of resting bradycardia. He should call 911 if chest pain persist.
--- NOTE | 2018-11-25 18:13 | PCM.DCSUM1 ---
Discharge Summary - Hospital Course Brief History: This 58 year old male with pmh of asthma, obesity, hyperlipidemia presented to the ED today with chest pain, neck pain and lightheadedness. He reports he had a stress test this morning with Dr Dumont. He was on the treadmill nearing the end and became very lightheaded with neck pain. He told them to stop, which they did. He was near normal before going home but at home he started having a worse headache with neck pain, lightheadedness and chest pain. The chest pain was L sided, anterior , burning in nature, no radiation of this pain. Mild shortness of breath and some diaphoresis. He reports in September at [employer] hunting he was eating chili and passed out with family around him and then reported this same neck pain, but declined to be evaluated at that time. He reports since that time in September he has never felt the same and has felt very fatigued and feels when he over exerts himself he gets this neck pain and has near syncope at times. He denies abdominal pain, dysuria or black or bloody BMs. No fevers, chills or URI symptoms at home. Reports congestion, which is normal due to allergies and takes Luba daily for this. He chews tobacco, 1 tin every 2 days, occasional alcohol use and no recreational drug use. He has significant family history of CAD on his paternal side and his brother had carotid endarterectomy. In the ED labwork WNL. BP on arrival elevated in 180s/90s. Given 1 nitro and pain was relieved. Also given ASA 324 mg. EKG SR with no acute ST elevation. CXR negative. Dr Dumont did talk with patient in ED with me, feels admission for observation and ECHO is recommended. PCP, Dr Sutton. Diagnosis: Stroke: No - Discharge Data Discharge Date: 11/25/18 Discharge Disposition: Home, Self-Care 01 Condition: Good - Discharge Diagnosis/Problem(s) (1) Chest pain, rule out acute myocardial infarction SNOMED Code(s): 42819282 ICD Code: R07.9 - CHEST PAIN, UNSPECIFIED Status: Acute (2) Near syncope SNOMED Code(s): 032005939 ICD Code: R55 - SYNCOPE AND COLLAPSE Status: Acute (3) Neck pain SNOMED Code(s): 15609280 ICD Code: M54.2 - CERVICALGIA Status: Acute (4) Hyperlipidemia SNOMED Code(s): 69465297 ICD Code: E78.5 - HYPERLIPIDEMIA, UNSPECIFIED Status: Chronic (5) Asthma SNOMED Code(s): 008186948 ICD Code: J45.909 - UNSPECIFIED ASTHMA, UNCOMPLICATED Status: Chronic Qualifiers: Asthma severity: mild Asthma persistence: intermittent Asthma complication type: uncomplicated Qualified Code(s): J45.20 - Mild intermittent asthma, uncomplicated - Patient Summary/Data Consults: Consultations 11/24/18 16:19 Consult to Physician [CONS] Routine - Patient Instructions Diet: Heart Healthy Diet Activity: No Strenuous Activities Showering/Bathing: March Shower Notify Provider of: Fever, Increased Pain, Swelling and Redness, Drainage, Nausea and/or Vomiting - Discharge Plan *PRESCRIPTION DRUG MONITORING PROGRAM REVIEWED*: Not Applicable *COPY OF PRESCRIPTION DRUG MONITORING REPORT IN PATIENT WILFREDO: Not Applicable Prescriptions/Med Rec: Nitroglycerin 0.4 mg SL ASDIRECTED PRN #30 tab.subl PRN Reason: Chest Pain Rosuvastatin [Crestor] 20 mg PO BEDTIME #30 tab Home Medications: Home Meds Fexofenadine/Pseudoephedrine [Luba-D 12 Hour Tablet] 1 tab PO DAILY 09/10/14 [History] Montelukast [Singulair] 1 tab PO DAILY 09/10/14 [History] Albuterol [Ventolin HFA] 2 puff INH PRN 11/24/18 [History] Esomeprazole [NexIUM] 40 mg PO DAILY 11/24/18 [History] Fluticasone Propionate [Flovent HFA] 44 mcg .XX 11/24/18 [History] Aspirin 81 mg PO DAILY tab.chew 11/25/18 [Rx] Nitroglycerin 0.4 mg SL ASDIRECTED PRN #30 tab.subl 11/25/18 [Rx] Rosuvastatin [Crestor] 20 mg PO BEDTIME #30 tab 11/25/18 [Rx] Oxygen Therapy Mode: Room Air Patient Handouts: Heart-Healthy Eating Plan, Niso-cr-Npin, Chest Wall Pain, Fcrm-ut-Vmyb, Near-Syncope, Mrdx-ve-Mvrk, Nitroglycerin sublingual tablets, Rosuvastatin Tablets, Dizziness Referrals: Daryl Jacob MD [Resident] - 12/03/18 2:00 pm - Discharge Summary/Plan Comment DC Time >30 min.: No Discharge Summary/Plan Comment: Discharge Diagnoses: Chest pain Hyperlipidemia Dizziness Fatigue Louis was admitted and monitored after event of chest pain and dizziness after his stress test. Dr Dumont consulted. Troponins negative. Carotid U/S completed, noted to have scatter atheromatous disease, without significant stenosis or elevated velocities. ECHO pending on discharge. A1c monitored, 5.6% . Lipid panel revealed total cholesterol 227, LDL 160 HDL 50 and triglycerides 83. During stay bradycardia noted, Dr Dumont reviewed stress test revealed mild decrease in radiouptake in basal to distal inferior wall along with mild to moderate hypokineses. EKG revealed ST abnormalities in III and aVF. He will be discharged home, restricted from working his job until angiogram in [place]. Dr Dumont will arrange this. He was sent home with Crestor and to stop Simvastatin, ASA daily and Nitro SL. If he were to experience chest pain again, he is to call 911 and to be evaluated immediately. No BB started due to rest bradycardia. He will be discharged home today with follow up for PCP, Dr Sutton and Dr Dumont. He is to return to ED or clinic if concerns should arise. - General Info Date of Service: 11/26/18 Admission Dx/Problem (Free Text: Admission Diagnosis/Problem Admission Diagnosis/Problem Chest pain, rule out acute myocardial infarction Subjective Update: Chest pain free on discharge. No dyspnea. No dizziness. Functional Status: Reports: Pain Controlled, Tolerating Diet, Ambulating, Urinating - Review of Systems General: Reports: No Symptoms HEENT: Reports: Headaches (improving.) Pulmonary: Reports: No Symptoms Cardiovascular: Reports: No Symptoms. Denies: Edema Gastrointestinal: Reports: No Symptoms Genitourinary: Reports: No Symptoms Musculoskeletal: Reports: No Symptoms Skin: Reports: No Symptoms Neurological: Reports: No Symptoms Psychiatric: Reports: No Symptoms - Patient Data Vitals - Most Recent: Last Vital Signs Temp 97.7 F 11/25/18 17:30 Pulse 58 L 11/25/18 17:30 Resp 18 11/25/18 17:30 BP 113/92 H 11/25/18 17:30 Pulse Ox 94 L 11/25/18 17:30 Orthostatic Blood Pressure [ 124/70 Sitting] Orthostatic Blood Pressure [ 111/67 Supine] Orthostatic Blood Pressure [ 121/74 Standing] Weight - Most Recent: 118.75 kg I&O - Last 24 hours: Intake & Output 11/25/18 11/25/18 11/25/18 06:59 14:59 22:59 Intake Total 650 500 Output Total 800 410 590 Balance -150 -410 -90 Lab Results - Last 24 hrs: Laboratory Results - last 24 hr 11/24/18 11/25/18 11/25/18 Range/Units 20:06 02:08 05:25 Troponin I < 0.050 0.051 (0.000-0.056) ng/mL Triglycerides 83 (0-200) mg/dL Cholesterol 227 H (50-200) mg/dL LDL Cholesterol, Calc 160 (60-180) mg/dL VLDL Cholesterol 16 (5-55) mg/dL HDL Cholesterol 50 (40-60) mg/dL Cholesterol/HDL Ratio 4.5 (3.3-6.0) Med Orders - Current: Current Medications Acetaminophen (Tylenol) 650 mg PO Q4H PRN PRN Reason: Pain (mild 1-3) Last Admin: 11/24/18 21:10 Dose: 650 mg Albuterol (Proventil Neb Soln) 2.5 mg NEB Q2H PRN PRN Reason: Shortness Of Breath/wheezing Albuterol (Proventil Hfa) 0 gm INH Q6H PRN PRN Reason: Wheezing Aspirin (Aspirin) 81 mg PO DAILY [facility] Last Admin: 11/25/18 11:13 Dose: 81 mg Fluticasone Propionate (Flovent Hfa 44 Mcg) 0 gm INH BID [facility] Last Admin: 11/25/18 09:46 Dose: Not Given Montelukast Sodium (Singulair) 10 mg PO BEDTIME [facility] Nitroglycerin (Nitrostat) 0.4 mg SL Q5M PRN PRN Reason: Chest Pain Last Admin: 11/24/18 14:16 Dose: 0.4 mg Omeprazole (Omeprazole) 40 mg PO ACBREAKFAST [facility] Last Admin: 11/25/18 11:12 Dose: 40 mg Ondansetron HCl (Zofran) 4 mg IVPUSH Q4H PRN PRN Reason: Nausea Simvastatin (Zocor) 10 mg PO BEDTIME [facility] Last Admin: 11/24/18 20:36 Dose: 10 mg Discontinued Medications Aspirin (Aspirin) 324 mg PO ONETIME ONE Stop: 11/24/18 14:04 Last Admin: 11/24/18 14:18 Dose: 324 mg Fluticasone Propionate (Flovent Hfa 110 Mcg) 0 gm INH BID [facility] Last Admin: 11/24/18 20:00 Dose: Not Given Sodium Chloride (Normal Saline) 1,000 mls @ 999 mls/hr IV STAT ONE Stop: 11/24/18 15:16 Last Admin: 11/24/18 14:16 Dose: 999 mls/hr Influenza Virus Vaccine (Pharmacy To Dose - Influenza Vaccine) 1 each IM ONETIME ONE Stop: 11/25/18 11:45 Last Admin: 11/25/18 13:55 Dose: Not Given Influenza Virus Vaccine (Fluzone Quad 2754-1599 Syringe) 60 mcg IM .ONCE ONE Stop: 11/25/18 12:01 Last Admin: 11/25/18 13:25 Dose: 60 mcg Pantoprazole Sodium (Protonix Iv) 40 mg IVPUSH NOW ONE Stop: 11/24/18 15:36 Last Admin: 11/24/18 15:53 Dose: 40 mg - Exam General: Reports: Alert, Oriented, Cooperative, No Acute Distress Lungs: Reports: Clear to Auscultation, Normal Respiratory Effort Cardiovascular: Reports: Regular Rate, Regular Rhythm GI/Abdominal Exam: Normal Bowel Sounds, Soft, Non-Tender, No Organomegaly Back Exam: Reports: Normal Inspection Extremities: Normal Inspection Neurological: Reports: No New Focal Deficit Psy/Mental Status: Reports: Alert, Normal Affect, Normal Mood
[2018-11-25] MEDS ORDERED: Montelukast 10 MG Tab PO SCH (21:00)
--- NOTE | 2018-11-27 13:34 | ECHO ---
EXAM DATE: 11/24/18 PATIENT'S AGE: 58 The echocardiogram report can be seen in this patient's EMR (Electronic Medical Record) in the Reports section. The report has also been scanned into PACs. [id number]
== END 2018-11-25 19:20 | disposition home or self-care (01) ==
LOC: MW.ED 13:36 → MW.ICU 16:15
PROVIDERS: ADMIT Internal Medicine; ATTEND Internal Medicine
DX: R07.2 Precordial pain (principal); R55 Syncope and collapse; M54.2 Cervicalgia; R53.83 Other fatigue; J45.20 Mild intermittent asthma, uncomplicated; I25.2 Old myocardial infarction; E78.5 Hyperlipidemia, unspecified; F17.220 Nicotine dependence, chewing tobacco, uncomplicated; E78.00 Pure hypercholesterolemia, unspecified; Z88.0 Allergy status to penicillin; Z23 Encounter for immunization; Z82.49 Family history of ischemic heart disease and other diseases of the circulatory system; Z79.51 Long term (current) use of inhaled steroids; Z79.82 Long term (current) use of aspirin; Z79.899 Other long term (current) drug therapy
CPT/HCPCS: 36415; 71045; 80053; 80061; 83036; 84484; 85025; 90686; 93005; 93306; 93880; 96361; 96374; 99285; A9270; C9113; G0008; G0378; J7040

== ENCOUNTER 2019-03-12 09:41 | Day surgery (SDC) | payer BC ==
[~2019-03-12 09:41] MED LIST: Lactated Ringers 1,000 ML IV SCH
[2019-03-12] MEDS ORDERED: fentaNYL 100 MCG/2 ML SDV ONE (09:44)
[2019-03-12] MEDS ORDERED: Propofol 200 MG/20 ML SDV ONE (09:44)
[2019-03-12] MEDS ORDERED: Lidocaine 2% 5 ML SDV ONE (09:44)
--- NOTE | 2019-03-12 10:42 | PCM.PREANE ---
Preanesthetic Assessment - Anesthesia/Transfusion/Family Hx Anesthesia History: Prior Anesthesia Without Reaction Family History of Anesthesia Reaction: No Transfusion History: No Prior Transfusion(s) Intubation History: Unknown - Review of Systems General: No Symptoms Pulmonary: No Symptoms Cardiovascular: No Symptoms Gastrointestinal: No Symptoms Neurological: No Symptoms Other: Reports: None - Physical Assessment Height: 1.73 m Weight: 128.367 kg ASA Class: 3 Mental Status: Alert & Oriented x3 Airway Class: Mallampati = 2 Dentition: Reports: Normal Dentition, Missing Tooth/Teeth (lower front tooth) Thyro-Mental Finger Breadths: 3 Mouth Opening Finger Breadths: 2 ROM/Head Extension: Limited/Partial Lungs: Clear to Auscultation, Normal Respiratory Effort Cardiovascular: Regular Rate, Regular Rhythm - Allergies Allergies/Adverse Reactions: Allergies Allergy/AdvReac Type Severity Reaction Status Date / Time Penicillins Allergy Cannot Verified 03/10/19 12:05 Remember - Blood Blood Available: No - Anesthesia Plan Pre-Op Medication Ordered: None - Acknowledgements Anesthesia Type Planned: MAC Pt an Appropriate Candidate for the Planned Anesthesia: Yes Alternatives and Risks of Anesthesia Discussed w Pt/Guardian: Yes Pt/Guardian Understands and Agrees with Anesthesia Plan: Yes PreAnesthesia Questionnaire HEENT History: Reports: Allergic Rhinitis, Cataract Other HEENT History: wears glasses Cardiovascular History: Reports: CAD (40% stenosis on ' maker' on coronary angiogram 4 months ago), High Cholesterol, Hypertension, Other (See Below) ( good excercize tolerance) Respiratory History: Reports: Asthma Gastrointestinal History: Reports: Diverticulosis, GERD Musculoskeletal History: Reports: Fracture, Gout, Other (See Below) (h/o neck pain) Other Musculoskeletal History: hx of fx clavicle Psychiatric History: Reports: None Endocrine/Metabolic History: Reports: Obesity/BMI 30+ - Infectious Disease History Infectious Disease History: Reports: Chicken Pox, Mumps - Past Surgical History Head Surgeries/Procedures: Reports: None HEENT Surgical History: Reports: Cataract Surgery, Tonsillectomy Cardiovascular Surgical History: Reports: Other (See Below) Other Cardiovascular Surgeries/Procedures: recent angiogram _"everything was OK " per patient GI Surgical History: Reports: Appendectomy, Colonoscopy (7-8 years ago- normal) Musculoskeletal Surgical History: Reports: Amputation, Knee Replacement Other Musculoskeletal Surgeries/Procedures:: right TKA, 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- then amputation - SUBSTANCE USE Smoking Status *Q: Current Every Day Smoker Tobacco Use Within Last Twelve Months: Smokeless Tobacco Recreational Drug Use History: No - HOME MEDS Home Medications: Home Meds Fexofenadine/Pseudoephedrine [Luba-D 12 Hour Tablet] 1 tab PO DAILY 09/10/14 [History] Montelukast [Singulair] 10 mg PO DAILY 09/10/14 [History] Albuterol [Ventolin HFA] 1 - 2 puff INH QID PRN 11/24/18 [History] Aspirin 81 mg PO DAILY tab.chew 11/25/18 [Rx] Nitroglycerin 0.4 mg SL ASDIRECTED PRN #30 tab.subl 11/25/18 [Rx] Rosuvastatin [Crestor] 20 mg PO BEDTIME #30 tab 11/25/18 [Rx] Fluticasone Propionate [Flovent HFA] 2 puff INH Q12H 03/10/19 [History] Lisinopril 20 mg PO DAILY 03/10/19 [History] Mirtazapine 15 mg PO BEDTIME 03/10/19 [History] Pantoprazole Sodium [Protonix] 20 mg PO QAM 03/10/19 [History] Tamsulosin [Flomax] 0.4 mg PO QAM 03/10/19 [History] Terbinafine HCl 250 mg PO DAILY 03/10/19 [History] amLODIPine [Norvasc] 2.5 mg PO QAM 03/10/19 [History] - CURRENT (IN HOUSE) MEDS Current Meds: Current Medications Lactated Ringer's (Ringers, Lactated) 1,000 mls @ 125 mls/hr IV ASDIRECTED MAICOL Discontinued Medications Fentanyl (Sublimaze) Confirm Administered Dose 100 mcg .ROUTE .STK-MED ONE Stop: 03/12/19 09:45 Lidocaine (Xylocaine-Mpf 2%) Confirm Administered Dose 5 ml .ROUTE .STK-MED ONE Stop: 03/12/19 09:45 Propofol (Diprivan 20 Ml) Confirm Administered Dose 400 mg .ROUTE .STK-MED ONE Stop: 03/12/19 09:45
[2019-03-12] MEDS ORDERED: Midazolam 1 MG/ML 2 ML SDV ONE (11:59)
[2019-03-12] MEDS ORDERED: Glycopyrrolate 0.2 MG/ML SDV ONE (12:00)
[2019-03-12 12:39] VITALS: BP 104/71
--- NOTE | 2019-03-12 12:40 | PCM.OPNOTE ---
- General Post-Op/Procedure Note Date of Surgery/Procedure: 03/12/19 Operative Procedure(s): egd w bx. and colonoscopy w bx Findings: see dict [id number] Pre Op Diagnosis: scrn colonoscopy and gerd Post-Op Diagnosis: Same Anesthesia Technique: Moderate Sedation Primary Surgeon: Zeb Hdez Pathology: egd bx and colon polyp at 25 cm Complications: None Condition: Good
--- NOTE | 2019-03-12 13:16 | PCM48HPAN ---
Post Anesthesia Note - EVALUATION WITHIN 48HRS OF ANESTHETIC Vital Signs in Normal Range: Yes Patient Participated in Evaluation: Yes Respiratory Function Stable: Yes Airway Patent: Yes Cardiovascular Function Stable: Yes Hydration Status Stable: Yes Pain Control Satisfactory: Yes Nausea and Vomiting Control Satisfactory: Yes Mental Status Recovered: Yes Resp Rate: 10 - COMMENTS/OBSERVATIONS Free Text/Narrative:: no anesthesia problems
--- NOTE | 2019-03-12 16:25 | OR ---
SURGEON: Zeb Hdez MD DATE OF PROCEDURE: 03/12/2019 PREOPERATIVE DIAGNOSES: 1. Screening colonoscopy. 2. Gastroesophageal reflux disease. POSTOPERATIVE DIAGNOSES: 1. Screening colonoscopy. 2. Gastroesophageal reflux disease. PROCEDURES PERFORMED: 1. Esophagogastroduodenoscopy with biopsy. 2. Colonoscopy with biopsy. DESCRIPTION OF PROCEDURE: EGD: The patient was taken to the endoscopy room, and with the [employer], Diprivan was administered. A well-lubricated EGD scope was gently inserted through the oropharynx, down the esophagus, passing through the gastroesophageal junction, into the stomach. The mucosa was examined upon the passage. Any etiology will be noted. Once in the stomach, we continued to advance to the distal antrum, passed through the pylorus into the second portion of the duodenum. Again, the mucosa was examined for any abnormality and etiology. The scope was then retrieved back to the stomach and then retroflexed to look at the fundus of the stomach. If a biopsy was indicated, we will biopsy the antrum, body, and gastroesophageal junction. The air will be sucked out while the scope is retrieved to reduce the patient's discomfort. The patient tolerated the procedure well. There were no intraoperative complications. Dr. Hdez was present through the whole procedure. Prior to surgery, a time-out had been called, the patient identified, procedure identified and antibiotic administered. Colonoscopy: The patient was taken to the endoscopy room. A time out was called, patient identified, and procedure identified. Diprivan was then administrated. Patient went from awake to sleep, hearing doctor talking or door closing is normal. Perineum inspection and digital examination were then performed. A well-lubricated colonoscope was gently inserted through the rectum, advanced past the rectosigmoid junction, the descending colon, splenic flexure, transverse colon, hepatic flexure, ascending colon, arrived to the cecum. Cecum was identified as dictated in the finding. Then the scope was carefully withdrawn while attention was paid to the mucosal surface for any abnormality. Air will be sucked out during the scope withdrawal. At the rectum, retroflexed to examine any rectal diseases, fistula or hemorrhoids. During mucosal examination, biopsy performed. Patient tolerated procedure well. There were no intraoperative complications, and Dr. Hdez was present throughout the whole procedure. EGD FINDINGS: 1. The patient is easily sedated with [employer] and Diprivan. The patient is soundly snoring. 2. Oropharynx and proximal esophagus were free of disease. No stricture, ulceration, varicosity, and distal esophagus at distance 40 shows mild salmon color change consistent with mild acid reflux. Stomach rugae is normal in appearance, antrum is grossly normal, and duodenum is also normal in appearance. Scope retrieved back to the stomach and retroflexed to look at the fundus of stomach. There was no hiatal hernia and, however, there is a lot of polyp in the greater curvature and the fundus, I mean more than 20. They are all very small like 1-2 mm. One of them was biopsied. Biopsy done at antrum, body, GE junction at 40 and sucked out the gas while scope pulling out. During the whole study, there was no blood, ulcer, bile, or food particle observed. COLONOSCOPY FINDINGS: 1. The patient is easily sedated with [employer] and Diprivan. The patient is soundly snoring. 2. Bowel prep is left to be desirable. It is a little below average. There is a large amount of liquid stool and a couple of semi-formed stool and colon is rather straight forward. Cecum indicated by ileocecal fold, one- to-one indentation, appendiceal orifice, light emittance is not observed. Mucosa examined upon scope pulling out with large amount of irrigation. The patient has mild diverticulosis on the left colon and the distal transverse colon and around the splenic fracture area. No signs or symptoms of diverticulitis. Has small sessile polyp at distal 25 cm when the scope pulling out and removed with cold biopsy forceps. No inflammation, stricture, AV malformation, ulceration, bleeding, mass observed, and the patient has mild internal hemorrhoids and mild external hemorrhoids. The patient would benefit from repeat colonoscopy in 10 years from today or if clinically indicated otherwise or if the biopsy indicated otherwise. As always, thank you for the kind referral. MISHEL MENDEZ /[id number]
== END 2019-03-12 13:08 | disposition home or self-care (01) ==
LOC: MW.SDS 09:41
PROVIDERS: ATTEND Surgery
DX: Z12.11 Encounter for screening for malignant neoplasm of colon (principal); K63.5 Polyp of colon; K64.8 Other hemorrhoids; K64.4 Residual hemorrhoidal skin tags; K21.0 Gastro-esophageal reflux disease with esophagitis; K31.7 Polyp of stomach and duodenum; K31.89 Other diseases of stomach and duodenum; I25.10 Atherosclerotic heart disease of native coronary artery without angina pectoris; I10 Essential (primary) hypertension; E11.9 Type 2 diabetes mellitus without complications; E78.00 Pure hypercholesterolemia, unspecified; J45.909 Unspecified asthma, uncomplicated; F17.220 Nicotine dependence, chewing tobacco, uncomplicated; M17.12 Unilateral primary osteoarthritis, left knee; M19.022 Primary osteoarthritis, left elbow; Z88.0 Allergy status to penicillin; Z79.82 Long term (current) use of aspirin; Z79.51 Long term (current) use of inhaled steroids; Z79.899 Other long term (current) drug therapy
CPT/HCPCS: 43239; 45380; J2001; J2250; J2704; J3010; J3490; J7120; 00813; 88305; 88312

== ENCOUNTER 2024-08-10 15:28 | Observation (INO) | payer BC ==
[2024-08-10] MEDS: Sodium Chloride 0.9% 1,000 ML IV ONE (15:46)
[2024-08-10 16:03] LABS: BASOPHILS ABSOLUTE AUTO 0.03 K/uL (0.00-0.20); BASOPHILS PERCENT AUTO 0.4 % (0.0-1.0); EOSINOPHILS ABSOLUTE AUTO 0.07 K/uL (0.00-0.45); EOSINOPHILS PERCENT AUTO 0.8 % (0.0-6.0); HEMATOCRIT 41.4 % (42.0-52.0); HEMOGLOBIN 14.4 g/dL (14.0-18.0); IMMATURE GRAN ABSOLUTE AUTO 0.03 K/uL (0.00-0.05); IMMATURE GRAN PERCENT AUTO 0.4 % (0.0-0.4); LYMPHOCYTES ABSOLUTE AUTO 1.63 K/uL (1.00-4.80); MEAN CORPUSCULAR HEMOGLOBIN 35.5 pg (28.0-32.0); MEAN CORPUSCULAR HGB CONC 34.8 g/dL (32.0-36.0); MEAN PLATELET VOLUME 8.7 fL (9.4-12.4); MONOCYTES ABSOLUTE AUTO 0.78 K/uL (0.00-0.80); MONOCYTES PERCENT AUTO 9.1 % (0.0-8.0); NEUTROPHILS ABSOLUTE AUTO 6.03 K/uL (1.80-7.70); NEUTROPHILS PERCENT AUTO 70.3 % (41.0-71.0); PLATELET COUNT,PLT 192 K/uL (150-400); RED BLOOD CELL COUNT 4.06 M/uL (4.52-5.90); WHITE BLOOD CELL COUNT,WBC 8.57 K/uL (3.9-11.3)
[2024-08-10 16:34] LABS: A/G RATIO 1.1 (0.9-1.6); ALBUMIN 3.4 g/dL (3.4-5.0); BILIRUBIN TOTAL 0.3 mg/dL (0.2-1.0); CALCIUM 8.9 mg/dL (8.5-10.1); CREATININE 1.7 mg/dL (0.8-1.3); EST CRCL DRUG DOSING (CG) 47.37 mL/min; MAGNESIUM 2.1 mg/dL (1.8-2.4); POTASSIUM,K 3.8 mmol/L (3.5-5.1); PROTEIN TOTAL,TP 6.6 g/dL (6.4-8.2)
[2024-08-10] MEDS: Iopamidol 755 MG/ML 500 ML Multipack Bottle IVPUSH STA (16:54)
[2024-08-10] MEDS: Aspirin 81 MG Tab.Chew PO STA (17:02)
[2024-08-10] MEDS ORDERED: Ondansetron 4 MG/2 ML SDV IVPUSH PRN (19:22)
[2024-08-10] MEDS ORDERED: Melatonin 3 MG Tab PO PRN (19:22)
[2024-08-10] MEDS ORDERED: Acetaminophen 325 MG Tab PO PRN (19:22)
[2024-08-10] MEDS ORDERED: Acetaminophen 650 MG Supp RECTAL PRN (19:22)
[2024-08-10] MEDS ORDERED: Glucagon,Human Recombinant 1 MG Vial IM PRN (19:24)
[2024-08-10] MEDS ORDERED: 50% Dextrose in Water 50 ML Syringe IVPUSH PRN (19:24)
[2024-08-10] MEDS ORDERED: Nitroglycerin 0.4 MG Tab.SL SL PRN (19:25)
[2024-08-10] MEDS ORDERED: Sodium Chloride 0.9% 1,000 ML IV SCH (19:30)
[2024-08-10] MEDS: Sodium Chloride 0.9% 1,000 ML IV SCH (20:44)
[2024-08-10] MEDS: Insulin Aspart 100 Units/ML 3 ML Pen SUBCUT SCH (20:46)
[2024-08-10] MEDS: Rosuvastatin 10 MG Tab PO SCH (20:49)
[2024-08-11 03:17] LABS: APPEARANCE,URINE CLEAR; BILIRUBIN,URINE NEGATIVE (NEGATIVE); COLOR,URINE YELLOW; GLUCOSE,URINE NEGATIVE (NEGATIVE); KETONES,URINE NEGATIVE (NEGATIVE); LEUKOCYTE ESTERASE,URINE NEGATIVE (NEGATIVE); NITRITE,URINE NEGATIVE (NEGATIVE); OCCULT BLOOD,URINE TRACE-INTACT (NEGATIVE); PROTEIN,URINE NEGATIVE (NEGATIVE); UROBILINOGEN,URINE 0.2 EU/dL (<2.0)
[2024-08-11 03:23] LABS: BACTERIA,URINE NOT SEEN (NEGATIVE); EPITHELIAL CELLS,URINE NOT SEEN (NONE-FEW); RBC,URINE 0-2 (0-2/HPF); WBC,URINE 0-1 (0-5/HPF)
[2024-08-11 05:55] LABS: BASOPHILS ABSOLUTE AUTO 0.02 K/uL (0.00-0.20); BASOPHILS PERCENT AUTO 0.2 % (0.0-1.0); EOSINOPHILS ABSOLUTE AUTO 0.12 K/uL (0.00-0.45); EOSINOPHILS PERCENT AUTO 1.4 % (0.0-6.0); HEMOGLOBIN 12.9 g/dL (14.0-18.0); IMMATURE GRAN ABSOLUTE AUTO 0.02 K/uL (0.00-0.05); IMMATURE GRAN PERCENT AUTO 0.2 % (0.0-0.4); LYMPHOCYTES ABSOLUTE AUTO 2.25 K/uL (1.00-4.80); LYMPHOCYTES PERCENT AUTO 25.6 % (24.0-44.0); MEAN CORPUSCULAR HEMOGLOBIN 35.5 pg (28.0-32.0); MEAN CORPUSCULAR HGB CONC 34.9 g/dL (32.0-36.0); MEAN CORPUSCULAR VOLUME 101.9 fL (83.0-99.0); MONOCYTES ABSOLUTE AUTO 0.92 K/uL (0.00-0.80); MONOCYTES PERCENT AUTO 10.5 % (0.0-8.0); NEUTROPHILS ABSOLUTE AUTO 5.46 K/uL (1.80-7.70); NEUTROPHILS PERCENT AUTO 62.1 % (41.0-71.0); PLATELET COUNT,PLT 162 K/uL (150-400); RED BLOOD CELL COUNT 3.63 M/uL (4.52-5.90); WHITE BLOOD CELL COUNT,WBC 8.79 K/uL (3.9-11.3)
[2024-08-11 06:21] LABS: CALCIUM 7.9 mg/dL (8.5-10.1); CARBON DIOXIDE,CO2 26.8 mmol/L (21.0-32.0); CREATININE 1.3 mg/dL (0.8-1.3); EST CRCL DRUG DOSING (CG) 56.27 mL/min; PHOSPHORUS 3.1 mg/dL (2.6-4.7); POTASSIUM,K 3.6 mmol/L (3.5-5.1)
[2024-08-11 08:30] VITALS: BP 146/70; PULSE 70
== END 2024-08-11 11:44 | disposition home or self-care (01) ==
LOC: MW.ED 15:28 → MW.MS 19:16
PROVIDERS: ADMIT Family Medicine; ATTEND Family Medicine
DX: N17.9 Acute kidney failure, unspecified (principal); R55 Syncope and collapse; I10 Essential (primary) hypertension; E11.9 Type 2 diabetes mellitus without complications; E78.00 Pure hypercholesterolemia, unspecified; I25.10 Atherosclerotic heart disease of native coronary artery without angina pectoris; K21.9 Gastro-esophageal reflux disease without esophagitis; Z79.84 Long term (current) use of oral hypoglycemic drugs; Z79.899 Other long term (current) drug therapy
CPT/HCPCS: 36415; 70450; 71045; 74177; 80048; 80053; 81001; 82947; 83690; 83735; 84100; 84484; 85025; 93005; 96360; 96361; 99285; A9270; G0378; J7030; Q9967; 93010; J1815-GY